=== PATIENT | male | born 1945 | race Caucasian/White ===

== ENCOUNTER 2016-11-07 12:41 | Outpatient (CLI) ==
--- NOTE | 2016-11-07 13:24 | CT ---
EXAM: CT of the lumbar spine without contrast History: Lower back pain. Technique: Multiplanar CT images through the lumbar spine were obtained without the administration of IV contrast Findings: Atherosclerotic vascular calcifications. No acute fracture or subluxation. Mild multilevel degenerative disc space narrowing. Bilateral L5 pars defects with no spondylolisthesis. There is some degree of epidural lipomatosis. The liver is f atty T12-L1: No significant disc bulge, central canal stenosis or neural foraminal narrowing. L1-L2: No significant disc bulge, central canal stenosis or neural foraminal narrowing. L2-L3: Small disc bulge effacing the anterior thecal sac with no significant central canal stenosis or neural foraminal narrowing. L3-L4: Small to modest disc protrusion with mild central canal stenosis. Moderate bilateral bony ne ural foraminal narrowing secondary to ligamentous and facet hypertrophy. L4-L5: Small to modest disc protrusion effacing the anterior thecal sac with mild central canal gian nosis. Moderate to severe left and moderate right bony neural foraminal narrowing secondary to liga mentous and facet hypertrophy. L5, S1: No significant disc bulge or bony central canal stenosis. Moderate bilateral bony neural f oraminal narrowing secondary to facet hypertrophy. Impression: 1. No acute osseous abnormality of the lumbar spine. 2. Level by level analysis as detailed above. 3. Bilateral L5 pars defects with no spondylolisthesis.
== END 2016-11-07 12:42 | disposition home or self-care (01) ==
LOC: RAD 12:41
PROVIDERS: ATTEND Internal Medicine
DX: M54.5 Low back pain (principal)